=== PATIENT | female | born 1960 | race Caucasian/White ===

== ENCOUNTER → 2019-05-21 | Outpatient (CLI) | payer OTHER ==
--- NOTE | 2019-05-21 16:06 | Diagnostic Imaging Report ---
EXAM: CT left ankle without contrast INDICATION: Ankle pain. Bone cyst. Swelling. Decreased range of motion. Prior fracture COMPARISON: None. TECHNIQUE: Left ankle was scanned utilizing a multidetector helical scanner without administration of IV contrast. Coronal and sagittal reformations were obtained. Routine protocol was performed. IV CONTRAST: None ORAL CONTRAST: None COMPLICATIONS: None RADIATION DOSE: Total DLP: 88 mGy*cm Estimated effective dose: (DLP x 0.015 x size factor) mSv CTDIvol has been reviewed. It is below the limits set by the Radiation Protocol Committee (RPC). Dose modulation, iterative reconstruction, and/or weight based adjustment of the mA/kV was utilized to reduce the radiation dose to as low as reasonably achievable. FINDINGS: Acute/subacute appearing intra-articular obliquely oriented distal fibular fracture with minimal displacement of the inferior fracture fragment best seen on sagittal reformatted image 39 through 42. Subacute/chronic appearing posterior medial malleolus fracture with well-corticated bone fragments best seen on coronal reformatted image 37 through 41. Scattered degenerative change. No osseous erosion. No talar dome osteochondral lesion. Small posterior and inferior calcaneal bone spurs. Soft tissue edema about the ankle/hindfoot. No radiopaque foreign body. Diffuse muscle atrophy. Impression: Acute/subacute appearing intra-articular obliquely oriented distal fibular fracture with minimal displacement of the inferior fracture fragment. Subacute/chronic appearing posterior medial malleolus fracture with well-corticated bone fragments Signed by: Dr. Leonel Polanco M.D. on 05/21/2019 4:03 PM
== END ==
LOC: CT 12:50
PROVIDERS: ATTEND Podiatrist Foot & Ankle Surgery
DX: M25.572 Pain in left ankle and joints of left foot (principal); S82.832A Other fracture of upper and lower end of left fibula, initial encounter for closed fracture; S82.52XA Displaced fracture of medial malleolus of left tibia, initial encounter for closed fracture